=== PATIENT | female | born 1995 | race African-American/Black ===

== ENCOUNTER 2024-12-28 16:38 | Emergency (ER) | payer MEDICAID ==
[~2024-12-28] VITALS: Ht 160 cm; Wt 94.3 kg
[~2024-12-28 16:38] MED LIST: CEPH250C PO
--- NOTE | 2024-12-28 18:01 | ED.PDOC ---
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 Patient states, that she has been experiencing pelvic pain with associated right sided cramping, nausea, and vomiting x2days. Patient relays, that she took an at home test [id number] ago which came back positive; has not been tested by a provider since finding out of possible . Patient complains of current 6/10 pain. Patient denies hematuria, vaginal bleeding, fever, chills, or body-aches. No other symptoms or modifying factors at this time. Chief Complaint: Pelvic Pain Time Seen by MD: 17:50 Reviewed Notes: Nurses Notes, Medications, Allergies Allergies: Coded Allergies: NO KNOWN ALLERGIES (Unverified , 03/16/24) Home Meds Active Scripts Nitrofurantoin Monohydrate Mac (Macrobid) 100 Mg Cap, 100 MG PO BID for 5 Days, #10 CAP Prov:JORGE MONTAÑO MD 12/28/24 Cephalexin (KEFLEX CAPSULE) 250 Mg Cp, 250 MG PO QID for 5 Days, #20 BOTTLE Prov:GISELA POWELL MD 03/16/24 Information Source: Patient Mode of Arrival: Ambulatory Timing: Days Severity: Moderate Vaginal Discharge: None Vaginal Lesions: None Vaginal Mass: None Onset Of Mass/Bleeding: Spontaneous Last Consensual [place]: Unknown Control: None History of: Current Blood Type: Unknown Symptoms of Possible : None Associated Signs and Symptoms: Abdominal Pain Past Medical History PAST MEDICAL HISTORY: Denies Surgical History: Denies all surgeries INTERNAL SALES History: No Pertinent INTERNAL SALES History Family History Family History: Unknown Social History Smoker: Non-Smoker Alcohol: Occasionally Drugs: Marijuana Lives In: Home Constitutional: denies: chills, diaphoresis, fatigue, fever, malaise, sweats, weakness, others EENTM: denies: blurred vision, double vision, ear bleeding, ear discharge, ear drainage, ear pain, ear ringing, eye pain, eye redness, hearing loss, mouth pain, mouth swelling, nasal discharge, nose bleeding, nose congestion, nose pain, photophobia, tearing, throat pain, throat swelling, voice changes, others Respiratory: denies: cough, hemoptysis, orthopnea, SOB at rest, shortness of breath, SOB with excertion, stridor, wheezing, others Cardiovascular: denies: chest pain, dizzy spells, diaphoresis, Dyspnea on exertion, edema, irregular heart beat, left arm pain, lightheadedness, palpitat ions, PND, syncope, others Gastrointestinal: denies: abdomen distended, abdominal pain, blood streaked bow els, constipated, diarrhea, dysphagia, difficulty swallowing, hematemesis, melena, nausea, poor appetite, poor fluid intake, rectal bleeding, rectal pain, vomiting, others Genitourinary: reports: , others (pelvic pain); denies: abnormal vagina bleeding, burning, dyspareunia, dysuria, flank pain, frequency, hematuria, incontinence, pain, vagina discharge, urgency Neurological: denies: dizziness, fainting, headache, left sided numbness, left sided weakness, numbness, paresthesia, pre-existing deficit, right sided numbness, right sided weakness, seizure, speech problems, tingling, tremors, weakness, others Musculoskeletal: denies: back pain, gout, joint pain, joint swelling, muscle pain, muscle stiffness, neck pain, others Integumetry: denies: bruises, change in color, change in hair/nails, dryness, laceration, lesions, lumps, rash, wounds, others Allergic/Immunocompromised: denies: Difficulty Healing, Frequent Infections, Hives, Itching, others Hematologic/Lymphatic: denies: anemia, blood clots, easy bleeding, easy bruising, swollen glands, others Endocrine: denies: excessive hunger, excessive sweating, excessive thirst, excessive urination, flushing, intolerance to cold, intolerance to heat, unexplained weight gain, unexplained weight loss, others Psychiatric: denies: anxiety, bipolar disorder, depression, hopeless, panic disorder, schizophrenia, sleepless, suicidal, others All Other Systems: Reviewed and Negative Physical Exam General Appearance: No Apparent Distress HEENT: Normal ENT Inspection, Pharynx Normal, TMs Normal Neck: Full Range of Motion, Non-Tender, Normal, Normal Inspection Respiratory: Chest Non-Tender, Lungs Clear, No Accessory Muscle Use, No Respiratory Distress, Normal Breath Sounds Cardiovascular: No Edema, No JVD, No Murmur, No Gallop, Normal Peripheral Pu lses, Regular Rate/Rhythm Breast Exam: Deferred Gastrointestinal: No Organomegaly, Non Tender, No Pulsatile Mass, Normal Bowel Sounds, Soft Genitalia: Deferred Pelvic: Deferred Rectal: Deferred Extremities: No calf tenderness, Normal capillary refill, Normal inspection, Normal range of motion, Non-tender, No pedal edema Musculoskeletal : Apperance: Normal Neurologic: Alert, 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 Was a procedure done?: No Differential Diagnosis (INTERNAL SALES) Vaginal Bleeding: Cervicitis, Vaginitis Vaginal Discharge: , UTI X-Ray, Labs, Meds, VS Vital Signs Date Time Temp Pulse Resp B/P (MAP) Pulse Ox O2 Delivery O2 Flow Rate FiO2 12/28/24 17:00 98.0 70 18 138/75 (96) 97 98.0 Lab Test 12/28/24 18:12 12/28/24 18:04 Range/Units Beta HCG, Quantitative 626139.3 H 1.5-4.2 mIU/mL Urine Color Light-orange Yellow Urine Clarity Turbid H Clear Urine pH 5.5 5.0-9.0 Urine Specific [place] 1.025 1.001-1.035 Urine Protein Trace H Negative Urine Ketones 1+ H Negative Urine Blood Trace H Negative /uL Urine Nitrite Negative Negative Urine Bilirubin Negative Negative Urine Urobilinogen 3 H Negative mg/dL Urine Leukocyte Esterase 3+ Negative /uL Urine RBC 2 0 - 4 /hpf Urine Microscopic WBC 56 H 0-5 /HPF Urine Squamous Epithelial Cells Few <5 /hpf Urine Bacteria Few H None Seen /hpf Urine Mucus Few None Seen Urine Glucose Normal Normal mg/dL Pelvic ultrasound shows: Impression: Single live intrauterine with heart rate of 162 bpm. Estimated gestational age 11 weeks / 0 days with estimated date of confinement 07/19/2025.Bilateral ovaries Are not visualized. The urine test is positive for UTI The patient was discharged Images Reviewed?: Images reviewed and evaluated by me Time of 1ST Reevaluation: 18:20 Reevaluation 1ST: Unchanged Patient Education/Counseling: Diagnosis, Treatment, Prognosis, Need For Follow Up Family Education/Counseling: No Family Present Departure 1 Departure Time of Disposition: 20:33 Impression: Primary Impression: UTI (urinary tract infection) Qualified Codes: N30.00 - Acute cystitis without hematuria Additional Impression: Qualified Codes: Z34.90 - Encounter for supervision of normal , unspecified, unspecified trimester Disposition: HOME / SELF CARE / HOMELESS Condition: Fair e-Prescriptions Nitrofurantoin Monohydrate Mac (Macrobid) 100 Mg Cap 100 MG PO BID for 5 Days, #10 CAP Prov: JORGE MONTAÑO MD 12/28/24 Discharged With: Self Critical Care Note Critical Care Time?: No Stability Stability form required: No Heart Score Heart Score: Heart Score Response (Comments) Value History N/A 0 EKG N/A 0 Age N/A 0 Risk Factors N/A 0 Troponin N/A 0 Total 0 I personally scribed for JORGE MONTAÑO MD ([email or web address]) on 12/28/24 at 18:01. Electronically submitted by Ena Thompson ([email or web address]). I personally scribed for JORGE MONTAÑO MD ([email or web address]) on 12/28/24 at 18:11. Electronically submitted by Ena Thompson ([email or web address]). JORGE MONTAÑO MD Dec 28, 2024 18:01
[2024-12-28 18:23] LABS: Urine Bacteria FEW /hpf (None Seen); Urine Blood TRACE /uL (Negative); Urine Clarity Turbid (Clear); Urine Color Light-Orange (Yellow); Urine Mucus FEW (None Seen); Urine Protein, UAD TRACE (Negative); Urine Specific Gravity 1.025 (1.001-1.035); Urine Squamous Epithelial Cell FEW /hpf (<5); Urine Urobilinogen 3 mg/dL (Negative); Urine WBC 56 /HPF (0-5); Urine pH 5.5 (5.0-9.0)
--- NOTE | 2024-12-28 20:08 | DVH ---
Procedure: US OB ULTRASOUND COMP LESS 14WKS Study Date and Requested Time: 12/28/2024 07:37 PM Study Description: US OB ULTRASOUND COMP LESS 14WKS History: pain Comparison: None Technique: Multiple high resolution devries-scale images obtained of the uterus, fetus, and other gestat ional components with M-mode scanning for evaluation of heart rate. Findings: Single live intrauterine with gestational sac, yolk sac, and fetus visualized. heart rate of 162 bpm. Estimated gestational age 11 weeks / 0 days based on crown-rump length of 3.8 cm and mean gestational sac diameter of 5.3 cm. Uterus measures 12.6 x 8 x 7 cm in size. Cervical os appears closed. Bilateral ovaries are not visualized. No evidence of free fluid in the cul-de-sac. Impression: Single live intrauterine with heart rate of 162 bpm. Estimated gestational age 11 wee ks / 0 days with estimated date of confinement 07/19/2025.Bilateral ovaries Are not visualized.
[2024-12-28] MEDS ORDERED: NITR-87 PO (20:32)
[2024-12-28 23:30] VITALS: BP 136/82; PULSE 70; RESP 18; TEMP 98; O2SAT 97
[2024-12-28] MEDS: NITROFURANTOIN 100 mg CAP PO ONE (23:40)
== END 2024-12-28 23:46 | disposition home or self-care (01) ==
LOC: ER 16:38
DX: O23.41 Unspecified infection of urinary tract in pregnancy, first trimester (principal); O21.9 Vomiting of pregnancy, unspecified; O26.891 Other specified pregnancy related conditions, first trimester; R10.2 Pelvic and perineal pain; N39.0 Urinary tract infection, site not specified; F12.90 Cannabis use, unspecified, uncomplicated; Z3A.08 8 weeks gestation of pregnancy; Z79.899 Other long term (current) drug therapy
CPT/HCPCS: 36415; 76801; 81001; 84702

== ENCOUNTER 2025-05-28 15:52 | Inpatient (IN) | payer MEDICAID ==
[~2025-05-28] VITALS: Ht 160 cm; Wt 96.0 kg
[~2025-05-28 15:52] MED LIST changes: +NITR-87 PO
--- NOTE | 2025-05-28 17:29 | DVH ---
CHEST RADIOGRAPH REASON FOR EXAM: Fever of unknown origin COMPARISON: None TECHNIQUE: One view of the chest is provided FINDINGS: The cardiomediastinal silhouette is within normal limits for technique. There is no focal a irspace disease. There is no significant pleural effusion. No acute bony abnormality is identified. IMPRESSION: No radiographic evidence of acute cardiopulmonary process.
[2025-05-28 17:30] LABS: Hematocrit 34.7 % (36.0-46.0); Hemoglobin 11.5 g/dL (12.2-16.2); Mean Corpuscular Hemoglobin 27.9 pg (28.0-32.0); Mean Corpuscular Volume 83.7 fL (80.0-100.0); Nucleated Red Blood Cells % 0.0 %
[2025-05-28 17:33] LABS: Urine Protein, UAD TRACE (Negative)
[2025-05-28] MEDS: LACTATED RINGER'S 1,000 ML IV ONE (17:34)
[2025-05-28] MEDS: ACETAMINOPHEN IV 1000 MG/100ML (10MG/ML) IV ONE (17:34)
[2025-05-28 17:45] LABS: Albumin 3.7 g/dL (3.2-4.8); Alkaline Phosphatase 78 U/L (46-116); Anion Gap 12 (5-15); BUN/Creatinine Ratio 9.4 (10.0-20.0); Calcium 8.8 mg/dL (8.7-10.4); Chloride 102 mmol/L (98-107); Total Protein 6.6 g/dL (5.7-8.2)
[2025-05-28 17:46] LABS: Bilirubin, Total 0.5 mg/dL (0.2-1.0)
[2025-05-28 17:48] LABS: Alanine Aminotransferase < 9 U/L (7-40); Blood Urea Nitrogen 6 mg/dL (9-23); Carbon Dioxide 20 mmol/L (20-31); Glucose 71 mg/dL (74-106); Potassium 3.5 mmol/L (3.5-5.1); Sodium 134 mmol/L (136-145)
[2025-05-28 18:49] LABS: COVID19 ANTIGEN SOFIA FIA NEGATIVE (NEGATIVE)
--- NOTE | 2025-05-28 19:21 | DVH ---
OB ULTRASOUND, LIMITED CLINICAL INDICATION: Tachycardia TECHNIQUE: Multiple grayscale ultrasound and M-mode images were obtained of the pelvis for evaluation of intrauterine . COMPARISON: None FINDINGS: A single living fetus is seen in cephalic presentation. Biparietal diameter: 8.11 cm (32 weeks, 4 days) Head Circumference: 29.46 cm (32 weeks, 4 days) Abdomen Circumference: 27.8 cm (31 weeks, 6 days) Femur Length: 6.08 cm (31 weeks, 4 days) Estimated weight: 1862 grams (+/- 279 grams). Placenta: Anterior. Amniotic fluid: Visibly normal. GUILLERMO 12.8 cm Three-vessel cord: Present. Cord insertion: Normal. heart rate: 176 beats/min. A complete anatomic survey was not performed on this exam. IMPRESSION: Single living intrauterine with an estimated gestational age of 32 weeks, 1 days, corresp onding to an estimated date of delivery of 07/22/2025. Biophysical profile: 05/20
[2025-05-28] MEDS: cefTRIAXone 1GM/50ML D5W 50 ML IV SCH (19:32)
--- NOTE | 2025-05-28 20:03 | DVHHP2 ---
OB CC & HPI Date Date of Admission: May 28, 2025 Patient Identification: : 8 Para: 5 EDC: Jul 20, 2025 EGA: 32.3 Chief Complaints: Reason for admission: other (Fever, backpain) History of Present Complaints 30y IUP 32.3 wk Admitted w/ acute pyelonephritis. c/o left flank pain, dysuria associated w/ fever/chills Elevated WBC and positive UA on exam in OB triage Initially FHR Tachycardia 200 bpm, now resolved w/ antipyretics and IV fluids. Patient receives PNL care at [facility] denies any significant PMHx or current complications w/ this Past Medical History Cardiac: No pertinent Hx Pulmonary: No pertinent Hx Central Nervous System: No pertinent Hx GI: No pertinent Hx Hemotology/Oncology: No pertinent Hx Hepatobiliary: No pertinent Hx Psychiatric: No pertinent Hx Musculoskeletal: No pertinent Hx Rheumotologic: No pertinent Hx Infectious Disease: No peritnent Hx ENT: No pertinent Hx Renal/: No pertinent Hx Endocrine: No pertinent Hx Dermatology: No pertinent Hx Past Surgical History: No pertinent Hx OB History OB History Care: Good Care Ultrasounds: Normal mid trimester US Obstetrical Complications: None Medical Complications: None Allergies: Coded Allergies: NO KNOWN ALLERGIES (Unverified , 03/16/24) Home Meds Active Scripts Nitrofurantoin Monohydrate Mac (Macrobid) 100 Mg Cap, 100 MG PO BID for 5 Days, #10 CAP Prov:JORGE MONTAÑO MD 12/28/24 Cephalexin (KEFLEX CAPSULE) 250 Mg Cp, 250 MG PO QID for 5 Days, #20 BOTTLE Prov:GISELA POWELL MD 03/16/24 Current Medications Current Medications Medications (Trade) Dose Ordered Sig/Erick Route PRN Reason Start Time Stop Time Status Last Admin Ceftriaxone Sodium 50 ml @ 100 mls/hr DAILY@09 IV 05/29/25 09:00 05/28/25 19:22 DC Ceftriaxone Sodium 50 ml @ 100 mls/hr DAILY@09 IV 05/28/25 19:30 05/28/25 19:32 Family & Social History Family/Social History GBS Status: Unknown Review of Systems Constitutional: Chills, Fever, Malaise Ears, Nose, & Throat: No symptom reported Eyes: No symptom reported Pulmonary/Respiratory: Cough Cardiovascular: No symptom reported Gastrointestinal: No symptom reported Genitourinary: Dysuria, Pain Musculoskeletal: No symptom reported Skin: No symptom reported Psychiatric: No symptom reported Endocrine: No symptom reported Hemotologic/Lymphatic: No symptom reported OB Admission Exam Physical Exam HEENT: NCAT Heart: Other (Tachycardic) Lungs: Clear Abdomen: Other (Non Tender uterus, Left CVA tenderness +) Extremities: Normal Reflexes: Normal Pelvic Exam: Deferred Heart Rate: 150's Accelerations: Accelerations Present Decelerations: No Decelerations Short Term Variability: 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 Visit Coding OBGYN Date of Service: May 28, 2025 Billing Provider: RA BOND DO SUPERINTENDENT QUARRY Common Visit Codes: 14615-AATAUIL INP/OBS CARE (HIGH) SUPERINTENDENT QUARRY Procedure Codes: 06320-01- NON-STRESS TEST RA BOND DO May 28, 2025 20:03
[2025-05-28] MEDS: NIFEdipine 10 MG CAP PO ONE (21:15)
[2025-05-28] MEDS: ACETAMINOPHEN 325 MG TAB PO PRN (21:16)
[2025-05-28] MEDS ORDERED: PIPERACILLIN-TAZOB 3.375GM 100 ML IV SCH (22:45)
[2025-05-28] MEDS: PIPERACILLIN-TAZOB 3.375GM 100 ML IV ONE (23:34)
[2025-05-29] MEDS: LACTATED RINGER'S 1,850 ML IV ONE (01:39)
[2025-05-29] MEDS: ACETAMINOPHEN IV 100 ML IV ONE (01:39)
[2025-05-29] MEDS: HYDROcodone-ACET 5/325MG TAB PO PRN (02:52)
--- NOTE | 2025-05-29 04:29 | DVH ---
INDICATION: LEFT FLANK PAIN TECHNIQUE: Multiple real-time sonographic images of the kidneys and bladder were obtained. COMPARISON: None FINDINGS: RIGHT KIDNEY: Measures 10.8 cm. Normal in echogenicity. No mass. Subcentimeter nonobstructive stone. No hydronephrosis. LEFT KIDNEY: Measures 11.3 cm. Normal in echogenicity. No mass. No urinary stones. No hydronephrosi s. BLADDER: Distended. IMPRESSION: 1. No acute process. No hydronephrosis. 2. Subcentimeter nonobstructive stone within the right kidney.
--- NOTE | 2025-05-29 05:02 | DVHPN2 ---
Chief Complaints Patient reports: Feels better Nursing reports: Other ( Tachycardia resolved) Objective Vitals Vital Signs Date Time Temp Pulse Resp B/P (MAP) Pulse Ox O2 Delivery O2 Flow Rate FiO2 05/28/25 21:16 100.8 05/28/25 21:15 110/50 Medications Current Medications Medications (Trade) Dose Ordered Sig/Erick Route PRN Reason Start Time Stop Time Status Last Admin Acetaminophen (Tylenol Tablet) 650 mg Q4HP PRN PO PAIN SCALE 1-3 OR TEMP>100.4 05/28/25 21:15 05/28/25 21:16 Acetaminophen/ Hydrocodone Bitart ([place] 5/325MG Tab) 1 tab Q6HPRN PRN PO MODERATE PAIN (4-6 PAIN SCALE) 05/29/25 02:45 05/29/25 02:52 Ceftriaxone Sodium 50 ml @ 100 mls/hr DAILY@09 IV 05/28/25 19:30 05/28/25 19:32 Lactated Ringer's 1,000 ml @ 125 mls/hr Q8H IV 05/29/25 02:00 Piperacillin Sod/ Tazobactam Sod 100 ml @ 25 mls/hr Q12HR IV 05/28/25 22:45 UNV Piperacillin Sod/ Tazobactam Sod 100 ml @ 25 mls/hr Q8H IV 05/29/25 03:45 General: Well developed, Well nourished, Normal Appearance Head/Eyes: Normal ENT: Normal Lungs: Normal, Normal inspection, Symmetric expansion Cardiovascular: Normal, Regular rate and rhythm Abdominal: Soft, Normal inspection, Non tender, CVA tenderness Musculoskeletal: Normal, Full Range of Motion Extremities: Normal Skin: Normal, Warm Neurological: Normal, CNII-XII Intact, Normal Speech, Normal Hearing Studies Laboratory Tests 05/28/25 17:08 Test 05/28/25 17:08 Range/Units Serum Glucose 71 L 74-106 mg/dL Ass/Plan Assessment IUP 32.3 wk Acute Pyelonephritis Small non obstructing Rt renal calculus tachycardia resolved Threatened labor resolved Plan Continue IV fluid, IV antibiotics (received Rocephin 1gm IV, then switched to Zosyn 3.375 gm IV q6h) Waiting for IM hospitalist consult awaiting urine and blood culture results continue to observe for signs of sepsis and labor Visit Coding OBGYN Date of Service: May 29, 2025 Billing Provider: RA BOND DO DOCK ASSOCIATE Common Visit Codes: [id number] INP/OBS CARE(HIGH) RA BOND DO May 29, 2025 05:02
[2025-05-29] MEDS ORDERED: cefTRIAXone 1GM/50ML D5W 50 ML IV SCH (09:00)
[2025-05-29] MEDS ORDERED: VANCOMYCIN PER PHARMACY 0 MG IV SCH (09:00)
--- NOTE | 2025-05-29 09:21 | DVHINCON2 ---
VIVIAN BLANCO RESDIENT 05/29/25 0921: Date of service: May 29, 2025 History of Present Illness This is a 30-year-old 32 weeks female with past medical history of UTI (12 weeks back), came to the hospital due to low back pain since 1 day. Pain is localized at low back, constant, 6/10, with no clear exacerbating or relieving factor. Patient also reports of fever and suprapubic pain. She denies headache, blurry vision, chest pain, shortness of breath, nausea, vomiting, or any recent bowel habit changes. PMHx: Had a UTI during current (on 20th week of ) and previous PSHx: Not significant Family history: Not significant Social history: Was smoking marijuana previous to Home medication: Does not take any medicine Allergic history: No known allergy Patient seen and examined at the bedside. Patient is lying comfortably on the bed with no distress. She still reports suprapubic tenderness. Allergies: Uncoded Allergies: yogesh (Allergy, Severe, hives, 05/29/25) hives Home Meds Active Scripts Cephalexin Monohydrate (Cephalexin) 500 Mg Tab, 500 MG PO BID for 14 Days, #28 TAB Prov:VIVIAN BLANCO RESDIENT 05/31/25 Reported Medications Vit W/ Ferrous Fumara ( One Daily) Daily Tab, 1 TAB PO DAILY, #90 TAB 3 Refills 05/29/25 Current Medications Current Medications Medications (Trade) Dose Ordered Sig/Erick Route PRN Reason Start Time Stop Time Status Last Admin Ceftriaxone Sodium 50 ml @ 100 mls/hr DAILY@09 IV 05/29/25 09:00 05/28/25 19:22 DC Ceftriaxone Sodium 50 ml @ 100 mls/hr DAILY@09 IV 05/28/25 19:30 05/28/25 19:32 Acetaminophen (Tylenol Tablet) 650 mg Q4HP PRN PO PAIN SCALE 1-3 OR TEMP>100.4 05/28/25 21:15 05/28/25 21:16 Piperacillin Sod/ Tazobactam Sod 100 ml @ 25 mls/hr Q12HR IV 05/28/25 22:45 UNV Piperacillin Sod/ Tazobactam Sod 100 ml @ 25 mls/hr Q8H IV 05/29/25 03:45 Lactated Ringer's 1,000 ml @ 125 mls/hr Q8H IV 05/29/25 02:00 Acetaminophen/ Hydrocodone Bitart ([place] 5/325MG Tab) 1 tab Q6HPRN PRN PO MODERATE PAIN (4-6 PAIN SCALE) 05/29/25 02:45 05/29/25 02:52 Vital Signs Vital Signs Date Time Temp Pulse Resp B/P (MAP) Pulse Ox O2 Delivery O2 Flow Rate FiO2 05/28/25 22:26 100.8 05/28/25 21:15 110/50 Physical Exam General Appearance: Alert, Oriented X3, Cooperative, No acute distress HEENT: Atraumatic, PERRLA, EOMI, Mucous membrane moist/pink Respiratory: Clear to auscultation, Normal air movement Cardiovascular: Regular rate, Normal S1, Normal S2, No murmurs, no chest wall tenderness Abdominal: 32 week gravid uterus, mild suprapubic tenderness Extremities: No clubbing, No cyanosis, No edema, Normal pulses, No tenderness/swelling Skin: No rashes, No breakdown, No significant lesion Neuro: Normal gait, Normal speech, Strength at 5/5 X4 ext, Normal tone, S ensation intact, Cranial nerves 3-12 NL, Reflexes 2+ Psych/Mental Status: Mental status NL, Mood NL Labs/Diagnostic Data Labs Test 05/28/25 22:26 05/28/25 17:15 05/28/25 17:08 05/28/25 16:59 Range/Units Lactic Acid Level 1.3 0.4-2.0 mmol/L Influenza Type A Antigen Negative Negative Influenza Type B Antigen Negative Negative SARS-CoV-2 Antigen (Rapid) Negative NEGATIVE White Blood Count 13.1 H 4.4-10.8 10^3/uL Red Blood Count 4.14 4.0-5.20 10^6/uL Hemoglobin 11.5 L 12.2-16.2 g/dL Hematocrit 34.7 L 36.0-46.0 % Mean Corpuscular Volume 83.7 80.0-100.0 fL Mean Corpuscular Hemoglobin 27.9 L 28.0-32.0 pg Mean Corpuscular Hemoglobin Concent 33.3 32.0-36.0 g/dL Red Cell Distribution Width 12.2 11.8-14.3 % Platelet Count 235 140-450 10^3/uL Mean Platelet Volume 8.9 6.9-10.8 fL Neutrophils (%) (Auto) 89.0 H 37.0-80.0 % Lymphocytes (%) (Auto) 6.3 L 10.0-50.0 % Monocytes (%) (Auto) 4.6 0.0-12.0 % Eosinophils (%) (Auto) 0.0 0.0-7.0 % Basophils (%) (Auto) 0.1 0.0-2.0 % Neutrophils # (Auto) 11.6 H 1.6-8.6 10 ^3/uL Lymphocytes # (Auto) 0.8 0.4-5.4 10 ^3/uL Monocytes # (Auto) 0.6 0-1.3 10 ^3/uL Eosinophils # (Auto) 0 0-0.8 10 ^3/uL Basophils # (Auto) 0 0-0.2 10 ^3/uL Nucleated Red Blood Cells 0.0 % Sodium Level 134 L 136-145 mmol/L Potassium Level 3.5 3.5-5.1 mmol/L Chloride Level 102 98-107 mmol/L Carbon Dioxide Level 20 20-31 mmol/L Anion Gap 12 5-15 Blood Urea Nitrogen 6 L 9-23 mg/dL Creatinine 0.64 0.550-1.02 mg/dL Glomerular Filtration Rate Calc 123 >90 mL/min BUN/Creatinine Ratio 9.4 L 10.0-20.0 Serum Glucose 71 L 74-106 mg/dL Calcium Level 8.8 8.7-10.4 mg/dL Total Bilirubin 0.5 0.2-1.0 mg/dL Aspartate Amino Transferase (AST) 15 13-40 U/L Alanine Aminotransferase (ALT) < 9 7-40 U/L Alkaline Phosphatase 78 46-116 U/L Total Protein 6.6 5.7-8.2 g/dL Albumin 3.7 3.2-4.8 g/dL Urine Color Colorless Yellow Urine Clarity Turbid H Clear Urine pH 6.5 5.0-9.0 Urine Specific [place] 1.019 1.001-1.035 Urine Protein Trace H Negative Urine Ketones 2+ H Negative Urine Blood Negative Negative /uL Urine Nitrite Negative Negative Urine Bilirubin Negative Negative Urine Urobilinogen 2 H Negative mg/dL Urine Leukocyte Esterase 2+ Negative /uL Urine RBC 4 0 - 4 /hpf Urine Microscopic WBC 35 H 0-5 /HPF Urine Squamous Epithelial Cells Mod <5 /hpf Urine Bacteria Mod H None Seen /hpf Urine Mucus Few None Seen Urine Glucose Normal Normal mg/dL Assessment Sepsis in , likely due to UTI Complicated UTI Obesity Nonobstructing right renal calculi Intrauterine , 32 weeks Threatened labor * Urinalysis shows turbid urine, 2+ leukocyte esterase, 35 WBC and moderate bacteria * Ultrasound shows, subcentimeter nonobstructive stone within the right kidney * Obstetric ultrasound/biophysical profile: single living intrauterine with an estimated gestational age of 32 weeks, 1 days, corresponding to an estimated date of delivery of 07/22/2025. Biophysical profile: 05/20 Plan/recommendation * OBGYN is on the board, recommended that threatened labor resolved medical management * 4 L of IV fluid has been given * Empiric antibiotic Zosyn and vancomycin * Urine and blood culture DIET: Regular DVT PROPHYLAXIS: Lovenox CODE STATUS: Goal of care discussed for more than 18 minutes, full code DISPOSITION: Telemetry Patient's status and plan discussed with the patient. Case discussed with Dr. Ibarra. Plan discussed with: Patient, Other (RN) REDD SALAS MD 06/05/25 1714: Date of service: May 29, 2025 Allergies: Uncoded Allergies: peache (Allergy, Severe, hives, 05/29/25) hives Home Meds Active Scripts Cephalexin Monohydrate (Cephalexin) 500 Mg Tab, 500 MG PO BID for 14 Days, #28 TAB Prov:VIVIAN BLANCO RESDIENT 05/31/25 Reported Medications Vit W/ Ferrous Fumara ( One Daily) Daily Tab, 1 TAB PO DAILY, #90 TAB 3 Refills 05/29/25 Date of Service: May 29, 2025 Billing Provider: REDD SALAS MD Common Visit Codes: CONSULT ONLY Consultation Codes: [id number] CONSULT <60MIN VIVIAN BLANCO RESDIENT May 29, 2025 09:21 REDD SALSA MD Jun 05, 2025 17:14
[2025-05-29] MEDS: VANCOMYCIN 1GM/250ML KIT 250 ML IV SCH ×2 (09:30→22:27)
[2025-05-29 10:03] LABS: Hematocrit 33.7 % (36.0-46.0); Hemoglobin 11.1 g/dL (12.2-16.2); Mean Corpuscular Hemoglobin 27.5 pg (28.0-32.0); Mean Corpuscular Volume 83.3 fL (80.0-100.0); Nucleated Red Blood Cells % 0.0 %
[2025-05-29] MEDS: PIPERACILLIN-TAZOB 3.375GM 100 ML IV SCH (10:10)
[2025-05-29] MEDS: ONDANSETRON HCL 4 MG/2 ML VIAL IV PRN (10:16)
[2025-05-29 10:20] LABS: INR 0.98 (0.9-1.15); Prothrombin Time 10.4 sec (9.3-11.8)
[2025-05-29 10:25] LABS: Albumin 3.7 g/dL (3.2-4.8); Alkaline Phosphatase 79 U/L (46-116); Anion Gap 12 (5-15); BUN/Creatinine Ratio 8.8 (10.0-20.0); Bilirubin, Total 0.5 mg/dL (0.2-1.0); Calcium 8.7 mg/dL (8.7-10.4); Carbon Dioxide 21 mmol/L (20-31); Chloride 102 mmol/L (98-107); Glucose 91 mg/dL (74-106); Total Protein 6.5 g/dL (5.7-8.2)
[2025-05-29 10:34] LABS: Alanine Aminotransferase < 9 U/L (7-40); Blood Urea Nitrogen 6 mg/dL (9-23); Magnesium 1.5 mg/dL (1.6-2.6); Potassium 3.3 mmol/L (3.5-5.1); Sodium 135 mmol/L (136-145)
[2025-05-29 11:46] VITALS: BP 123/62; PULSE 125; RESP 18; TEMP 101.6; O2SAT 96
[2025-05-29] MEDS ORDERED: PREN-96 PO (11:56)
[2025-05-29] MEDS: LACTATED RINGER'S 1,000 ML IV SCH (12:47)
[2025-05-29 13:00] VITALS: BP 123/62; PULSE 125; RESP 18; TEMP 101.6; O2SAT 96
[2025-05-29] MEDS: ACETAMINOPHEN 325 MG TAB PO PRN (13:03)
[2025-05-29] MEDS: ENOXAPARIN SOD 40 MG/0.4 ML SYRINGE SC SCH (14:50)
[2025-05-29] MEDS: PRENATAL VITAMIN TAB PO ONE (14:50)
[2025-05-29 17:00] VITALS: BP 110/59; PULSE 107; RESP 16; TEMP 98.1; O2SAT 97
[2025-05-29] MEDS: MAGNESIUM SULFATE 1GM/100ML 100 ML IV SCH (17:38)
[2025-05-29] MEDS: POTASSIUM CHLORIDE 40 MEQ, LIDOCAINE 1% (LOCAL ANESTH.) 4 ML in SODIUM CHL 0.9% 250 ML IV ONE (18:28)
[2025-05-29 20:00] VITALS: PULSE 111; RESP 18; O2SAT 96
[2025-05-29 21:00] VITALS: BP 133/63; PULSE 102; RESP 17; TEMP 98.9; O2SAT 96
[2025-05-30] VITALS (8 sets, daily range): BP systolic 61–151; BP diastolic 48–97; PULSE 100–111; RESP 16–19; TEMP 97.8–99.8; O2SAT 93–100
--- NOTE | 2025-05-30 08:32 | DVH ---
CLINICAL HISTORY: 32 weeks pyelonephritis and uterine contractions. COMPARISON: US BIOPHYSICAL PROFILE on DOS: 05/28/25, US OB ULTRASOUND COMP GTR 14 WKS on DOS: 05/28/25, US OB ULTRASOUND COMP LESS 14WKS on DOS: 12/28/24 TECHNIQUE: biophysical profile was performed. Transabdominal sonographic images of the fetus we re obtained. FINDINGS: The fetus is in cephalic position. heart rate measures 141 BPM. Amniotic fluid index measures 19 cm. The placenta is posterior/right lateral in position without visualized evidence for p revia or abruption. BPP profile is an overall score of 8/8, with 2/2 points for breathing, with at least one episode of breathing over a 30 second duration during a 30 minute observation, 2/2 points for m ovements, with 3 or more discrete body or limb movements, 2/2 points for tone, with one or more episodes of extremity extension with return to flexion, or opening and closing of hand, and 2/ 2 points for amniotic fluid, with at least 1 pocket of amniotic fluid that measures 2 cm in 2 perpend icular planes. IMPRESSION: BPP score of 8/8.
--- NOTE | 2025-05-30 08:59 | DVH ---
LIMITED OB ULTRASOUND > 14 WKS: HISTORY: CERVICAL LENGTH ONLY TECHNIQUE: Multiple real-time grayscale images of the gravid uterus with duplex Doppler color flow an d M-mode spectral analysis. TRANSDUCER: Transabdominal COMPARISON: US OB ULTRASOUND COMP GTR 14 WKS on DOS: 05/28/25, US OB ULTRASOUND COMP LESS 14WKS on DOS : 12/28/24 FINDINGS/IMPRESSION: Cervix is closed and measures 4.2 cm.
--- NOTE | 2025-05-30 09:11 | DVHPN2 ---
Chief Complaints Patient reports: Feels better, Other (Denies contractions, bleeding or ROM) Nursing reports: Other (Some contractions noted on NST/monitoring) Objective Vitals Vital Signs Date Time Temp Pulse Resp B/P (MAP) Pulse Ox O2 Delivery O2 Flow Rate FiO2 05/30/25 08:44 98.7 105 19 112/48 (69) 94 98.7 05/29/25 20:00 Room Air* 0 21 Medications Current Medications Medications (Trade) Dose Ordered Sig/Erick Route PRN Reason Start Time Stop Time Status Last Admin Enoxaparin Sodium (Lovenox) 40 mg DAILY SC 05/29/25 10:00 05/29/25 14:50 Ondansetron HCl (Zofran) 4 mg Q4HPRN PRN IV NAUSEA / VOMITING 05/29/25 10:00 05/29/25 10:16 Prenat Multivit/ [place]/Iron/Folic Ac (Prenavite Tablet) 1 DAILY PO 05/30/25 10:00 Vancomycin HCl 250 ml @ 250 mls/hr Q8H IV 05/29/25 22:00 05/30/25 06:07 General: Well developed, Well nourished, Normal Appearance Head/Eyes: Normal ENT: Normal Lungs: Normal, Normal inspection, Symmetric expansion Cardiovascular: Normal, Regular rate and rhythm Abdominal: Soft, Normal inspection, Non tender, CVA tenderness Musculoskeletal: Normal, Full Range of Motion Extremities: Normal Skin: Normal, Warm Neurological: Normal, CNII-XII Intact, Normal Speech, Normal Hearing Others PATIENT: ANIBAL WARREN CACCT: [id number] UNIT: [id number] : 1995 LOC: [facility] ROOM / BED: [facility] / A AGE / SEX: 30 / F ADM STATUS: ADM IN SERVICE 6 ORDERING PHYSICIAN: RA BOND DO PROCEDURE(s): BPP - BIOPHYSICAL PROFILE REASON: 32 weeks pyelonephritis and UC's ORDER NUMBER(s): [id number], ACCESSION NUMBER(s): [id number] CLINICAL HISTORY: 32 weeks pyelonephritis and uterine contractions. COMPARISON: US BIOPHYSICAL PROFILE on DOS: 05/28/25, US OB ULTRASOUND COMP GTR 14 WKS on DOS: 05/28/25, US OB ULTRASOUND COMP LESS 14WKS on DOS: 12/28/24 TECHNIQUE: biophysical profile was performed. Transabdominal sonographic images of the fetus were obtained. FINDINGS: The fetus is in cephalic position. heart rate measures 141 BPM. Amniotic fluid index measures 19 cm. The placenta is posterior/right lateral in position without visualized evidence for previa or abruption. BPP profile is an overall score of 8/8, with 2/2 points for breathing, with at least one episode of breathing over a 30 second duration during a 30 minute observation, 2/2 points for movements, with 3 or more discrete body or limb movements, 2/2 points for tone, with one or more episodes of extremity extension with return to flexion, or opening and closing of hand, and 2/2 points for amniotic fluid, with at least 1 pocket of amniotic fluid that measures 2 cm in 2 perpendicular planes. IMPRESSION: BPP score of 8/8. ATED BY: TRISTAN VICK DO DICTATED DATE/TIME: 05/30/25829 Studies Laboratory Tests 05/29/25 09:43 ATIENT: ANIBAL WARREN CACCT: [id number]: [id number] : 1995 LOC: [facility] ROOM / BED: [facility] / A AGE / SEX: 30 / F ADM STATUS: ADM IN SERVICE 1 ORDERING PHYSICIAN: RA BOND DO PROCEDURE(s): OBLTD - OBSTERICAL LIMITED REASON: CERVICAL LENGTH ONLY ORDER NUMBER(s): [id number], ACCESSION NUMBER(s): [id number] LIMITED OB ULTRASOUND > 14 WKS: HISTORY: CERVICAL LENGTH ONLY TECHNIQUE: Multiple real-time grayscale images of the gravid uterus with duplex Doppler color flow and M-mode spectral analysis. TRANSDUCER: Transabdominal COMPARISON: US OB ULTRASOUND COMP GTR 14 WKS on DOS: 05/28/25, US OB ULTRASOUND COMP LESS 14WKS on DOS: 12/28/24 FINDINGS/IMPRESSION: Cervix is closed and measures 4.2 cm. ATED BY: HUNTER ARCE MD DICTATED DATE/TIME: 05/30/25 0856 Test 05/29/25 09:43 Range/Units Serum Glucose 91 74-106 mg/dL Ass/Plan Assessment IUP 32.4 wk Acute Pyelonephritis , gram neg rods in urine (sens pending) Small non obstructing Rt renal calculus tachycardia resolved Threatened labor resolved Plan Continue IV antibiotics until afebrile x 48 hr, await urine cult sens and then switch to PO abx for outpt tx 10-14 days total replace K+ orally today Consider D/C Vanco? will await IM recommendations, as blood cultures neg to date. NST BID Visit Coding OBGYN Date of Service: May 30, 2025 Billing Provider: RA BOND DO CASEWORK SUPERVISOR Common Visit Codes: [id number] INP/OBS CARE(HIGH) RA BOND DO May 30, 2025 09:11
[2025-05-30] MEDS: PRENATAL VITAMIN TAB PO SCH (10:18)
[2025-05-30 10:22] LABS: Hepatitis B Surface Antigen Negative (Negative); Hepatitis C Antibody Negative (Negative)
[2025-05-30 10:23] LABS: Hematocrit 29.7 % (36.0-46.0); Hemoglobin 10.0 g/dL (12.2-16.2); Mean Corpuscular Hemoglobin 27.9 pg (28.0-32.0); Mean Corpuscular Volume 82.9 fL (80.0-100.0); Nucleated Red Blood Cells % 0.0 %
[2025-05-30 11:00] LABS: Anion Gap 8 (5-15); Carbon Dioxide 23 mmol/L (20-31); Chloride 106 mmol/L (98-107); Potassium 3.5 mmol/L (3.5-5.1); Sodium 137 mmol/L (136-145)
[2025-05-30 11:03] LABS: Calcium 8.3 mg/dL (8.7-10.4)
[2025-05-30 11:06] LABS: Magnesium 1.9 mg/dL (1.6-2.6)
[2025-05-30 11:17] LABS: BUN/Creatinine Ratio 6.3 (10.0-20.0); Blood Urea Nitrogen < 5 mg/dL (9-23); Glucose 114 mg/dL (74-106)
--- NOTE | 2025-05-30 16:15 | DVHPNRES ---
Progress Note Date Seen: May 30, 2025 Resident Creating Document: VIVIAN BLANCO RESDIENT Has the PT tested + for MRSA If YES, has PT been informed?: No Medical Necessity Reason Pt with a Central, PICC or Fol: No Subjective Review of Systems Patient seen and examined at the bedside. Patient is feeling better since admission but still complained of low back pain. Objective vital signs Vital Sign Date Time Temp Pulse Resp B/P (MAP) Pulse Ox O2 Delivery O2 Flow Rate FiO2 05/30/25 12:45 98.8 101 19 111/60 (77) 99 98.8 05/30/25 08:10 Room Air* 0 21 Total Intake and Output 05/29/25 05/29/25 05/30/25 15:00 23:00 07:00 Intake Total 350 ml 1150 ml 800 ml Balance 350 ml 1150 ml 800 ml medications Current Medications Medications Dose Ordered Sig/Erick Route Start Time Stop Time Status Last Admin Dose Admin Piperacillin Sod/ Tazobactam Sod 100 ml @ 25 mls/hr Q12HR IV 05/28/25 22:45 UNV Piperacillin Sod/ Tazobactam Sod 100 ml @ 25 mls/hr Q8H IV 05/29/25 03:45 05/30/25 11:01 25 MLS/HR Lactated Ringer's 1,000 ml @ 125 mls/hr Q8H IV 05/29/25 02:00 05/30/25 02:53 125 MLS/HR Acetaminophen/ Hydrocodone Bitart 1 tab Q6HPRN PRN PO 05/29/25 02:45 05/29/25 02:52 1 TAB Acetaminophen 650 mg Q4HP PRN PO 05/29/25 09:00 05/29/25 13:03 650 MG Enoxaparin Sodium 40 mg DAILY SC 05/29/25 10:00 05/30/25 10:18 40 MG Ondansetron HCl 4 mg Q4HPRN PRN IV 05/29/25 10:00 05/29/25 10:16 4 MG Prenat Multivit/ [place]/Iron/Folic Ac 1 DAILY PO 05/30/25 10:00 05/30/25 10:18 1 Examination General Appearance: Alert, Oriented X3, Cooperative, No acute distress HEENT: Atraumatic, PERRLA, EOMI, Mucous membrane moist/pink Respiratory: Clear to auscultation, Normal air movement Cardiovascular: Regular rate, Normal S1, Normal S2, No murmurs, no chest wall tenderness Abdominal: 32 week gravid uterus, mild suprapubic tenderness Extremities: No clubbing, No cyanosis, No edema, Normal pulses, No tenderness/swelling Skin: No rashes, No breakdown, No significant lesion Neuro: Normal gait, Normal speech, Strength at 5/5 X4 ext, Normal tone, Sensation intact, Cranial nerves 3-12 NL, Reflexes 2+ Psych/Mental Status: Mental status NL, Mood NL laboratory and microbiology Laboratory Tests 05/30/25 09:57 Test 05/30/25 09:57 Range/Units Serum Glucose 114 H 74-106 mg/dL Microbiology Date/Time Source Procedure Growth Status 05/28/25 17:10 Blood Blood Culture - Preliminary NO GROWTH AFTER 24 HOURS OF INCUBATION. Resulted 05/28/25 16:59 Voided Urine Urine Culture - Final Klebsiella ozaenae Complete Labs and/or images reviewed: Labs reviewed by me, Image(s) reviewed by me Problem List/Assessment/Plan Problem List/Assessment/Plan Sepsis in , likely due to UTI Complicated UTI Obesity Nonobstructing right renal calculi Intrauterine , 32 weeks Threatened labor * Urinalysis shows turbid urine, 2+ leukocyte esterase, 35 WBC and moderate bacteria * Ultrasound shows, subcentimeter nonobstructive stone within the right kidney * Obstetric ultrasound/biophysical profile: single living intrauterine with an estimated gestational age of 32 weeks, 1 days, corresponding to an estimated date of delivery of 07/22/2025. Biophysical profile: 05/20 Plan/recommendation * OBGYN is on the board, recommended that threatened labor resolved medical management * 4 L of IV fluid has been given * Empiric antibiotic Zosyn * Urine and blood culture after 24 hours shows no growth DIET: Regular DVT PROPHYLAXIS: Lovenox CODE STATUS: Goal of care discussed for more than 18 minutes, full code DISPOSITION: Telemetry Patient's status and plan discussed with the patient. Case discussed with Dr. Siddiqi. Plan discussed with: Patient, Other (RN) Date of Service: May 30, 2025 Billing Provider: HEATHER SIDDIQI MD Common Visit Codes: [id number] INP/OBS CARE(HIGH) VIVIAN BLANCO RESDIENT May 30, 2025 16:15 HEATHER SIDDIQI MD Jun 01, 2025 22:51
[2025-05-31] VITALS (7 sets, daily range): BP systolic 107–123; BP diastolic 50–79; PULSE 90–96; RESP 17–19; TEMP 97.2–98.5; O2SAT 97–100
--- NOTE | 2025-05-31 05:41 | DVHPN2 ---
Chief Complaints Patient reports: Feels better, Other (Denies contractions, bleeding or ROM) Nursing reports: Other Objective Vitals Vital Signs Date Time Temp Pulse Resp B/P (MAP) Pulse Ox O2 Delivery O2 Flow Rate FiO2 05/31/25 02:00 98.2 98.2 05/31/25 01:00 94 17 108/64 (79) 98 05/30/25 20:00 Room Air* 0 21 Medications Current Medications Medications (Trade) Dose Ordered Sig/Erick Route PRN Reason Start Time Stop Time Status Last Admin Prenat Multivit/ Shaper Set Up Operator/Iron/Folic Ac (Prenavite Tablet) 1 DAILY PO 05/30/25 10:00 05/30/25 10:18 General: Well developed, Well nourished, Normal Appearance Head/Eyes: Normal ENT: Normal Lungs: Normal, Normal inspection, Symmetric expansion Cardiovascular: Normal, Regular rate and rhythm Abdominal: Soft, Normal inspection, Non tender, CVA tenderness Musculoskeletal: Normal, Full Range of Motion Extremities: Normal Skin: Normal, Warm Neurological: Normal, CNII-XII Intact, Normal Speech, Normal Hearing Studies Klebsiella ozaenae QUANTITATION >100,000 CFU/ML Microbiology Date/Time Source Procedure Growth Status 05/28/25 17:10 Blood Blood Culture - Preliminary NO GROWTH AFTER 48 HOURS OF INCUBATION. Resulted 05/28/25 16:59 Voided Urine Urine Culture - Final Klebsiella ozaenae Complete Laboratory Tests 05/30/25 09:57 Test 05/30/25 09:57 Range/Units Serum Glucose 114 H 74-106 mg/dL Ass/Plan Assessment IUP 32.5 wk Acute Pyelonephritis , Klebsiella improved, afebrile almost 48hr Small non obstructing Rt renal calculus Plan Repeat CBC today Consider D/C w/ PO antibiotics Bactrim DS vs Augmentin (sensitive) NST/BPP today before discharge Clear d/c plan w/ IM team F/U in OB clinic in 1 wk Visit Coding OBGYN Date of Service: May 31, 2025 Billing Provider: RA BOND DO WET END SUPERVISOR Common Visit Codes: [id number] INP/OBS CARE(HIGH) RA BOND DO May 31, 2025 05:41
[2025-05-31 06:00] LABS: Hematocrit 29.8 % (36.0-46.0); Hemoglobin 10.0 g/dL (12.2-16.2); Mean Corpuscular Hemoglobin 28.1 pg (28.0-32.0); Mean Corpuscular Volume 83.6 fL (80.0-100.0); Nucleated Red Blood Cells % 0.0 %
[2025-05-31 06:18] LABS: Alkaline Phosphatase 77 U/L (46-116); Anion Gap 10 (5-15); BUN/Creatinine Ratio 6.0 (10.0-20.0); Carbon Dioxide 24 mmol/L (20-31); Chloride 105 mmol/L (98-107); Glucose 81 mg/dL (74-106); Potassium 3.6 mmol/L (3.5-5.1); Sodium 139 mmol/L (136-145)
[2025-05-31 06:20] LABS: Bilirubin, Total 0.4 mg/dL (0.2-1.0)
[2025-05-31 06:23] LABS: Alanine Aminotransferase < 9 U/L (7-40); Albumin 3.0 g/dL (3.2-4.8); Blood Urea Nitrogen 5 mg/dL (9-23); Calcium 8.2 mg/dL (8.7-10.4); Total Protein 5.5 g/dL (5.7-8.2)
--- NOTE | 2025-05-31 07:34 | DVHDS2 ---
Physician Discharge Progress N Final Diagnosis: pyelonephritis, treated Operations or Procedures: Operations or Procedures S: 30yo IUP@32.6wks, +FM, denies UCs/VB/LOF. PNC at [facility], next visit on 06/06/25. O: VSS, afebrile >24hrs NST reactive (FHR baseline 140s, moderate variability, +accels, -decels) I personally reviewed EFM tracing. no UCs palpated per RN during NST Sono done A: 30yo IUP@32.6wks Pyelonephritis, treated P: D/C home per Dr. Bryan, rx sent for macrobid PO f/u with primary OB at [facility] as scheduled on 06/06/25 Recommended taking OTC women's probiotic supplement daily. FKC/PTL precautions reviewed. Other Interventions Other Interventions [place] [address] Ph: [phone] DIAGNOSTIC IMAGING Diagnostic Imaging Report : [id number] Signed PATIENT: ANIBAL WARREN CACCT: [id number] UNIT: [id number] : 1995 LOC: [facility] ROOM / BED: [facility] [place] / A AGE / SEX: 30 / F ADM STATUS: ADM IN SERVICE 6 ORDERING PHYSICIAN: RA BOND DO PROCEDURE(s): BPP - BIOPHYSICAL PROFILE REASON: 32 weeks pyelonephritis and UC's ORDER NUMBER(s): [id number], ACCESSION NUMBER(s): [id number] CLINICAL HISTORY: 32 weeks pyelonephritis and uterine contractions. COMPARISON: US BIOPHYSICAL PROFILE on DOS: 05/28/25, US OB ULTRASOUND COMP GTR 14 WKS on DOS: 05/28/25, US OB ULTRASOUND COMP LESS 14WKS on DOS: 12/28/24 TECHNIQUE: biophysical profile was performed. Transabdominal sonographic images of the fetus were obtained. FINDINGS: The fetus is in cephalic position. heart rate measures 141 BPM. Amniotic fluid index measures 19 cm. The placenta is posterior/right lateral in position without visualized evidence for previa or abruption. BPP profile is an overall score of 8/8, with 2/2 points for breathing, with at least one episode of breathing over a 30 second duration during a 30 minute observation, 2/2 points for movements, with 3 or more discrete body or limb movements, 2/2 points for tone, with one or more episodes of extremity extension with return to flexion, or opening and closing of hand, and 2/2 points for amniotic fluid, with at least 1 pocket of amniotic fluid that measures 2 cm in 2 perpendicular planes. IMPRESSION: BPP score of 8/8. ATED BY: TRISTAN VICK DO DICTATED DATE/TIME: 05/30/25829 SIGNED BY: TRISTAN VICK DO SIGNED DATE/TIME: 05/30/25829 CC: Consultations: Consultations [place] [address] Ph: [phone] DIAGNOSTIC IMAGING Diagnostic Imaging Report : [id number] Signed PATIENT: ANIBAL WARREN CACCT: [id number] UNIT: [id number] : 1995 LOC: [facility] ROOM / BED: [address] [place] [address] AGE / SEX: 30 / F ADM STATUS: ADM IN SERVICE 1 ORDERING PHYSICIAN: RA BOND DO PROCEDURE(s): OBLTD - OBSTERICAL LIMITED REASON: CERVICAL LENGTH ONLY ORDER NUMBER(s): [id number], ACCESSION NUMBER(s): [id number] LIMITED OB ULTRASOUND > 14 WKS: HISTORY: CERVICAL LENGTH ONLY TECHNIQUE: Multiple real-time grayscale images of the gravid uterus with duplex Doppler color flow and M-mode spectral analysis. TRANSDUCER: Transabdominal COMPARISON: US OB ULTRASOUND COMP GTR 14 WKS on DOS: 05/28/25, US OB ULTRASOUND COMP LESS 14WKS on DOS: 12/28/24 FINDINGS/IMPRESSION: Cervix is closed and measures 4.2 cm. ATED BY: HUNTER ARCE MD DICTATED DATE/TIME: 05/30/25855 SIGNED BY: HUNTER ARCE MD SIGNED DATE/TIME: 05/30/25855 CC: Condition on Discharge: Stable Disposition: Home Discharge Instructions: Diet: Regular Activity: No Restrictions, As Tolerated Medications: see med list Follow Up Care: Specialist: f/u with primary OB at [facility] as scheduled on 06/06/25 Discharge Statement: "Patient was advised to return to the ER or call 911 if any headaches, dizziness, shortness of breath, chest pain, abdominal pain, bleeding, fevers, or worsening of medical condition. Patient was counseled about treatment plan, medications, possible side effects, patientverbalized understanding. All questions were answered to the best of my ability. This discharge took greater then 30 minutes in planning, reviewing documentation, counseling the patient, and discussing with other team members." Visit Coding OBGYN Date of Service: May 31, 2025 Billing Provider: NIKOLAS ANTONIO CNM TOOL GRINDER OPERATOR Common Visit Codes: [id number] DISCH DAY <30MIN NIKOLAS ANTONIO CNM May 31, 2025 07:34
[2025-05-31] MEDS ORDERED: NITR-87 PO (07:36)
--- NOTE | 2025-05-31 08:38 | DVH ---
BIOPHYSICAL PROFILE HISTORY: Pyelonephritis 32 wk non reactive NST TECHNIQUE: Multiple transabdominal real-time grayscale sonographic images through the gravid uterus of the fetus with duplex Doppler color flow and M-mode spectral analysis FINDINGS: BIOPHYSICAL PROFILE: breathing score: 2 movement score: 2 tone score: 2 Quantitative GUILLERMO score: 2 (GUILLERMO: 18.7 Cm.) Total score: 8 The cervix was not seen Single live fetus in cephalic presentation. heart rate 142 beats per minute. Grade III fundal placenta without previa or abruption Cervix is closed measuring 3.8 cm IMPRESSION: Biophysical profile score: 8/8
[2025-05-31] MEDS ORDERED: CEPH500T PO (11:17)
--- NOTE | 2025-05-31 14:48 | DVHPNRES ---
Progress Note Date Seen: May 31, 2025 Resident Creating Document: VIVIAN BLANCO SRINI Has the PT tested + for MRSA If YES, has PT been informed?: No Medical Necessity Reason Pt with a Central, PICC or Fol: No Subjective Review of Systems Patient seen and examined at the bedside. Patient is feeling better since admission. Objective vital signs Vital Sign Date Time Temp Pulse Resp B/P (MAP) Pulse Ox O2 Delivery O2 Flow Rate FiO2 05/31/25 13:01 98.5 92 19 107/71 (83) 97 98.5 05/31/25 08:15 Room Air* 0 21 Total Intake and Output 05/30/25 05/30/25 05/31/25 15:00 23:00 07:00 Intake Total 350 ml 1200 ml 300 ml Balance 350 ml 1200 ml 300 ml medications Current Medications Medications Dose Ordered Sig/Erick Route Start Time Stop Time Status Last Admin Dose Admin Piperacillin Sod/ Tazobactam Sod 100 ml @ 25 mls/hr Q12HR IV 05/28/25 22:45 UNV Piperacillin Sod/ Tazobactam Sod 100 ml @ 25 mls/hr Q8H IV 05/29/25 03:45 05/31/25 03:00 25 MLS/HR Lactated Ringer's 1,000 ml @ 125 mls/hr Q8H IV 05/29/25 02:00 05/31/25 03:02 125 MLS/HR Acetaminophen/ Hydrocodone Bitart 1 tab Q6HPRN PRN PO 05/29/25 02:45 05/29/25 02:52 1 TAB Acetaminophen 650 mg Q4HP PRN PO 05/29/25 09:00 05/29/25 13:03 650 MG Enoxaparin Sodium 40 mg DAILY SC 05/29/25 10:00 05/31/25 10:39 40 MG Ondansetron HCl 4 mg Q4HPRN PRN IV 05/29/25 10:00 05/29/25 10:16 4 MG Prenat Multivit/ [place]/Iron/Folic Ac 1 DAILY PO 05/30/25 10:00 05/31/25 10:39 1 Examination General Appearance: Alert, Oriented X3, Cooperative, No acute distress HEENT: Atraumatic, PERRLA, EOMI, Mucous membrane moist/pink Respiratory: Clear to auscultation, Normal air movement Cardiovascular: Regular rate, Normal S1, Normal S2, No murmurs, no chest wall tenderness Abdominal: 32 week gravid uterus, mild suprapubic tenderness Extremities: No clubbing, No cyanosis, No edema, Normal pulses, No tenderness/swelling Skin: No rashes, No breakdown, No significant lesion Neuro: Normal gait, Normal speech, Strength at 5/5 X4 ext, Normal tone, Sensation intact, Cranial nerves 3-12 NL, Reflexes 2+ Psych/Mental Status: Mental status NL, Mood NL laboratory and microbiology Laboratory Tests 05/31/25 04:41 Test 05/31/25 04:41 Range/Units Serum Glucose 81 74-106 mg/dL Microbiology Date/Time Source Procedure Growth Status 05/28/25 17:10 Blood Blood Culture - Preliminary NO GROWTH AFTER 48 HOURS OF INCUBATION. Resulted 05/28/25 16:59 Voided Urine Urine Culture - Final Klebsiella ozaenae Complete Problem List/Assessment/Plan Problem List/Assessment/Plan Sepsis in , likely due to UTI Complicated UTI Obesity Nonobstructing right renal calculi Intrauterine , 32 weeks Threatened labor * Urinalysis shows turbid urine, 2+ leukocyte esterase, 35 WBC and moderate bacteria * Ultrasound shows, subcentimeter nonobstructive stone within the right kidney * Obstetric ultrasound/biophysical profile: single living intrauterine with an estimated gestational age of 32 weeks, 1 days, corresponding to an estimated date of delivery of 07/22/2025. Biophysical profile: 05/20 Plan/recommendation * OBGYN is on the board, recommended that threatened labor resolved medical management * 4 L of IV fluid has been given an empiric antibiotic of the same given * Patient is clear from internal medicine perspective, can be discharged on Keflex 500 mg b.i.d. for 14 days, follow up with OBGYN on outpatient basis DIET: Regular DVT PROPHYLAXIS: Lovenox CODE STATUS: Goal of care discussed for more than 18 minutes, full code DISPOSITION: Telemetry Patient's status and plan discussed with the patient. Case discussed with Dr. Siddiqi. Plan discussed with: Patient Date of Service: May 31, 2025 Billing Provider: HEATHER SIDDIQI MD Common Visit Codes: [id number] INP/OBS CARE(HIGH) LETICIAVIVIAN JACKSON RESDIENT May 31, 2025 14:48 HEATHER SIDDIQI MD Jun 01, 2025 23:05
== END 2025-05-31 14:13 | disposition home or self-care (01) | DRG 566 ==
LOC: LDRP 15:52 → OBSVTOIN 05-29 01:52 → TELE-CENTR 05-29 11:22
PROVIDERS: ADMIT Student in an Organized Health Care Education/Training Program; ATTEND Student in an Organized Health Care Education/Training Program
DX: O98.813 Other maternal infectious and parasitic diseases complicating pregnancy, third trimester (principal); A41.9 Sepsis, unspecified organism; N10 Acute pyelonephritis; O23.03 Infections of kidney in pregnancy, third trimester; O26.833 Pregnancy related renal disease, third trimester; O47.03 False labor before 37 completed weeks of gestation, third trimester; N20.0 Calculus of kidney; Z3A.32 32 weeks gestation of pregnancy; O99.213 Obesity complicating pregnancy, third trimester; B96.1 Klebsiella pneumoniae [K. pneumoniae] as the cause of diseases classified elsewhere; O36.8330 Maternal care for abnormalities of the fetal heart rate or rhythm, third trimester, not applicable or unspecified
CPT/HCPCS: 36415; 59025; 71045; 76775; 76805; 76815; 76819; 80048; 80053; 81001; 81002; 82565; 83605; 83735; 84439; 84443; 85025; 85610; 86803; 87040; 87086; 87088; 87186; 87340; 87426; 87804; 94760; 94762; 96360; 96361; G0378; J0131; J2003; J2405; J2543

== ENCOUNTER 2025-08-31 04:25 | Emergency (ER) | payer MEDICAID ==
[~2025-08-31] VITALS: Ht 160 cm; Wt 91.0 kg
[~2025-08-31 04:25] MED LIST changes: -CEPH250C PO; +CEPH500T PO; -NITR-87 PO; +PREN-96 PO
[2025-08-31] MEDS ORDERED: DIPH25CA66 PO (04:43)
[2025-08-31] MEDS ORDERED: PRED20TA2 PO (04:43)
--- NOTE | 2025-08-31 04:45 | ED.PDOC ---
HPI Allergic reaction HPI Comments 30-year-old female presents to ER with complaints of allergic reaction x1 day. Patient reports he started developing itchy hives to bilateral arms, bilateral legs and chest with associated swelling to upper lip at 1:00 a.m. prior to arrival to ER. Denies any known allergies or any known triggers for her symptoms. Denies use of medications for current symptoms and presents to ER ambulatory on arrival, speaking in clear and complete sentences, in no distress with mild swelling noted to upper lip and mild urticaria noted to bilateral arms, chest and bilateral legs. Denies fever, shortness of breath, chest pain, difficulty swallowing, nausea/vomiting, diet changes, use of new soaps/lotions/d etergents or any further symptoms/complaints Chief Complaint: Allergic Reaction Time Seen by MD: 04:37 Primary Care Provider: UNKNOWN Reviewed Notes: Nurses Notes, Medications, Allergies Allergies: Uncoded Allergies: peache (Allergy, Severe, hives, 05/29/25) hives Home Meds Active Scripts Diphenhydramine Hcl (Benadryl Allergy) 25 Mg Cap, 2 CAP PO Q6HPRN, #30 CAP 0 Refills Prov:CHERYL BHARDWAJ 08/31/25 Prednisone (Prednisone) 20 Mg Tab, 20 MG PO BID for 5 Days, #10 TAB 0 Refills Prov:CHERYL BHARDWAJ 08/31/25 Cephalexin Monohydrate (Cephalexin) 500 Mg Tab, 500 MG PO BID for 14 Days, #28 TAB Prov:LETICIAVIVIAN JACKSON RESDIENT 05/31/25 Reported Medications Vit W/ Ferrous Fumara ( One Daily) Daily Tab, 1 TAB PO DAILY, #90 TAB 3 Refills 05/29/25 Information Source: Patient Mode of Arrival: Ambulatory Past Medical History PAST MEDICAL HISTORY: Denies Surgical History: Denies all surgeries CONSTRUCTION CARPENTER History: No Pertinent CONSTRUCTION CARPENTER History Family History Family History: Unknown Social History Smoker: Non-Smoker Alcohol: Occasionally Drugs: Denies Drug Use Lives In: Home Constitutional: denies: chills, diaphoresis, fatigue, fever, malaise, sweats, weakness, others EENTM: reports: others (As stated in HPI) Respiratory: denies: cough, hemoptysis, orthopnea, SOB at rest, shortness of breath, SOB with excertion, stridor, wheezing, others Cardiovascular: denies: chest pain, dizzy spells, diaphoresis, Dyspnea on exertion, edema, irregular heart beat, left arm pain, lightheadedness, palpitations, PND, syncope, others Gastrointestinal: denies: abdomen distended, abdominal pain, blood streaked bowels, constipated, diarrhea, dysphagia, difficulty swallowing, hematemesis, melena, nausea, poor appetite, poor fluid intake, rectal bleeding, rectal pain, vomiting, others Genitourinary: denies: abnormal vagina bleeding, burning, dyspareunia, dysuria, flank pain, frequency, hematuria, incontinence, pain, , vagina discharge, urgency, others Neurological: denies: dizziness, fainting, headache, left sided numbness, left sided weakness, numbness, paresthesia, pre-existing deficit, right sided numbness, right sided weakness, seizure, speech problems, tingling, tremors, weakness, others Musculoskeletal: denies: back pain, gout, joint pain, joint swelling, muscle p ain, muscle stiffness, neck pain, others Integumetry: reports: others (As stated in HPI) Allergic/Immunocompromised: denies: Difficulty Healing, Frequent Infections, Hives, Itching, others Hematologic/Lymphatic: denies: anemia, blood clots, easy bleeding, easy bruising, swollen glands, others Endocrine: denies: excessive hunger, excessive sweating, excessive thirst, excessive urination, flushing, intolerance to cold, intolerance to heat, unexplained weight gain, unexplained weight loss, others Psychiatric: denies: anxiety, bipolar disorder, depression, hopeless, panic disorder, schizophrenia, sleepless, suicidal, others Physical Exam General Appearance: No Apparent Distress, Obese HEENT: PERRL/EOMI, Pharynx Normal, TMs Normal, Other (Mild swelling noted to upper lip. No angioedema noted) Neck: Full Range of Motion, Non-Tender, Normal Respiratory: Chest Non-Tender, Lungs Clear, No Accessory Muscle Use, No Re spiratory Distress, Normal Breath Sounds Cardiovascular: No Murmur, No Gallop, Regular Rate/Rhythm Breast Exam: Deferred Gastrointestinal: NOT DONE Genitalia: Deferred Pelvic: Deferred Rectal: Deferred Extremities: Normal capillary refill, Normal range of motion Neurologic: Alert, medical examiner II-XII nml as Tested, No Motor Deficits, Normal Affect, Normal Mood, No Sensory Deficits Cerebellar Function: Normal Reflexes: Normal Skin: Dry, Warm, Other (Mild urticaria noted to bilateral arms, chest and bilateral legs) Peripheral Pulses: 2+ carotid (R), 2+ carotid (L), 2+ Radial (R), 2+ Radial (L), 2+ Brachial (R), 2+ Brachial (L) Lymphatic: No Adenopathy Was a procedure done? Was a procedure done?: No Sedation Sedation?: No Differential diagnosis (all) Differential Diagnosis: Anaphylaxis, Angioedema, Bronchospasm X-Ray, Labs, Meds, VS Vital Signs Date Time Temp Pulse Resp B/P (MAP) Pulse Ox O2 Delivery O2 Flow Rate FiO2 08/31/25 04:26 98.3 79 20 135/96 97 98.3 Current Medications Medications (Trade) Dose Ordered Sig/Erick Route Start Time Stop Time Status Last Admin Methylprednisolone Sodium Succinate (Solu Medrol) 125 mg ONCE ONCE IM 08/31/25 04:45 08/31/25 04:46 DC 08/31/25 04:49 Diphenhydramine HCl (Benadryl Injection) 25 mg ONCE ONCE IM 08/31/25 04:45 08/31/25 04:46 DC 08/31/25 04:49 Solu-Medrol 125 mg IM ordered Benadryl 25 mg IM ordered Patient had improvement in symptoms, tolerating p.o. intake well and well appearing/in no distress prior to discharge Advised to drink plenty of fluids Advised to follow up with PCP in 1-2 days Patient verbalized understanding and agreeable with current plan of care Advised to return to ER immediately if symptoms worsen Time of 1ST Reevaluation: 04:37 Reevaluation 1ST: N/A Time of 2ND Reevaluation: 05:31 Reevaluation 2ND: Improved Patient Education/Counseling: Diagnosis, Treatment, Prognosis, Need For Follow Up Family Education/Counseling: No Family Present SEPSIS Sepsis Screen Date sepsis recognized/suspect: Aug 31, 2025 Time Sepsis recognized/suspect: 043 Recent Procedure: No On Antibiotic Therapy: No Respiratory Rate >20: No Heart Rate >90: No Temp<36 C (96.8 F) or >38.3 C: No SBP <90 or MAP <65 mmHG: No New Acute Mental Status Change: No Is the patient on CPAP, BIPAP,: No Vital Signs Date Time Temp Pulse Resp B/P (MAP) Pulse Ox O2 Delivery O2 Flow Rate FiO2 08/31/25 04:26 98.3 79 20 135/96 97 98.3 Medications Medications Dose Ordered Sig/Erick Route Start Time Stop Time Status Last Admin Dose Admin Diphenhydramine HCl 25 mg ONCE ONCE IM 08/31/25 04:45 08/31/25 04:46 DC 08/31/25 04:49 Methylprednisolone Sodium Succinate 125 mg ONCE ONCE IM 08/31/25 04:45 08/31/25 04:46 DC 08/31/25 04:49 Departure 1 Departure Time of Disposition: 05:32 Impression: Primary Impression: Allergic reaction Qualified Codes: T78.40XA - Allergy, unspecified, initial encounter Disposition: HOME / SELF CARE / HOMELESS Condition: Stable e-Prescriptions Diphenhydramine Hcl (Benadryl Allergy) 25 Mg Cap 2 CAP PO Q6HPRN, #30 CAP 0 Refills Prov: CHERYL BHARDWAJ 08/31/25 Prednisone (Prednisone) 20 Mg Tab 20 MG PO BID for 5 Days, #10 TAB 0 Refills Prov: CHERYL BHARDWAJ 08/31/25 Discharged With: Friend Critical Care Note Critical Care Time?: No Stability Stability form required: No Heart Score Heart Score: Heart Score Response (Comments) Value History N/A 0 EKG N/A 0 Age N/A 0 Risk Factors N/A 0 Troponin N/A 0 Total 0 CHERYL BHARDWAJ Aug 31, 2025 04:45
[2025-08-31] MEDS: methylPREDNISolone SOD SUCC 125 MG/2 ML VL IM ONE (04:49)
[2025-08-31] MEDS: diphenhydrAMINE HCL 50 MG/1 ML VL IM ONE (04:49)
[2025-08-31 05:43] VITALS: BP 135/96; PULSE 79; RESP 20; TEMP 98.3; O2SAT 95
== END 2025-08-31 05:46 | disposition home or self-care (01) ==
LOC: ER 04:25
DX: T78.49XA Other allergy, initial encounter (principal); X58.XXXA Exposure to other specified factors, initial encounter
CPT/HCPCS: 96372; 99284; J1200; J2919